=== PATIENT | male | born 1940 | race African-American/Black ===

== ENCOUNTER → 2017-04-11 | Outpatient (CLI) | payer MEDICARE, OTHER | END | disposition home or self-care (01) | LOC: CDC 15:24 | DX: N40.1 Benign prostatic hyperplasia with lower urinary tract symptoms (principal); N13.8 Other obstructive and reflux uropathy; I49.3 Ventricular premature depolarization; R94.31 Abnormal electrocardiogram [ECG] [EKG] | CPT/HCPCS: 93000 ==

== ENCOUNTER 2017-12-20 16:53 | Emergency (ER) | payer OTHER ==
[~2017-12-20] VITALS: Ht 175.3 cm; Wt 104.4 kg
[2017-12-20 18:45] VITALS: BP 119/56
== END 2017-12-20 18:45 | disposition home or self-care (01) ==
LOC: EME 16:53
DX: M17.0 Bilateral primary osteoarthritis of knee (principal); I70.90 Unspecified atherosclerosis
CPT/HCPCS: 73564; 99281; 99284